=== PATIENT | female | born 1995 | race Caucasian/White ===

== ENCOUNTER 2020-04-27 17:02 | Outpatient (REF) | payer OTHER, MEDICAID, SELFPAY | END 2020-04-27 17:03 | disposition home or self-care (01) | LOC: HO.LAB 17:02 | PROVIDERS: Absent Provider Orthopaedic Surgery; PCP Internal Medicine; Visit Provider Internal Medicine | DX: Z20.828 Contact with and (suspected) exposure to other viral communicable diseases (principal) | CPT/HCPCS: 36415; 87635 ==